=== PATIENT | female | born 1980 | race African-American/Black ===

== ENCOUNTER 2018-04-21 13:58 | Emergency (ER) | payer OTHER ==
[2018-04-21 14:01] VITALS: BP 139/80
[2018-04-21] MEDS ORDERED: DIPH/PERTUSS(ACELL)/TETANUS VAC/PF 0.5 ML SYR (>=10YO) IM ONE (14:31)
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
== END 2018-04-21 14:55 | disposition home or self-care (01) ==
LOC: ER 13:58
DX: S16.1XXA Strain of muscle, fascia and tendon at neck level, initial encounter (principal); S50.812A Abrasion of left forearm, initial encounter; M54.2 Cervicalgia; V89.2XXA Person injured in unspecified motor-vehicle accident, traffic, initial encounter; Y99.0 Civilian activity done for income or pay; R40.2410 Glasgow coma scale score 13-15, unspecified time
CPT/HCPCS: 90471; 90715; 99283